=== PATIENT | male | born 1980 | race African-American/Black ===

== ENCOUNTER 2017-11-26 21:52 | Emergency (ER) | payer SELFPAY ==
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
[2017-11-26 22:39] LABS: CHLORIDE,CL 101 mmol/L (98-107); SODIUM,NA 140 mmol/L (136-148)
[2017-11-26] MEDS ORDERED: Etomidate 2 MG/ML 20 ML SDV IVPUSH ONE (23:00)
[2017-11-26] MEDS ORDERED: Succinylcholine 200 MG/10 ML MDV ONE (23:00)
[2017-11-26] MEDS ORDERED: Rocuronium 100 MG/10 ML MDV ONE (23:00)
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
== END 2017-11-26 22:42 ==
LOC: EDBD → MW.ED 21:52 → EDUNIT# 21:52 → MW.ED 22:42
DX: S06.9X9A Unspecified intracranial injury with loss of consciousness of unspecified duration, initial encounter (principal); R41.82 Altered mental status, unspecified; S01.81XA Laceration without foreign body of other part of head, initial encounter; I10 Essential (primary) hypertension; E11.9 Type 2 diabetes mellitus without complications; Z79.899 Other long term (current) drug therapy; Z79.4 Long term (current) use of insulin; Y08.89XA Assault by other specified means, initial encounter
CPT/HCPCS: 31500; 36415; 43753; 51702; 71045; 80053; 80305; 81001; 85025; 85610; 87389; 93005; 96361; 96374; 96375; 99291; G0480; J0330; J3490; 99284; 99285